=== PATIENT | female | born 1970 ===

== ENCOUNTER 2021-12-08 03:31 | Outpatient (CLI) | payer MEDICAID, SELFPAY ==
[2021-12-08 11:37] LABS: Ferritin 43 ng/mL (8-252)
== END 2021-12-08 03:32 | disposition home or self-care (01) ==
LOC: LBO 03:31
PROVIDERS: PCP Family Medicine; Visit Provider Nurse Practitioner
DX: M25.561 Pain in right knee (principal)
CPT/HCPCS: 36415; 82728